=== PATIENT | female | born 1995 | race American Indian/Alaskan Native ===

== ENCOUNTER 2017-09-19 19:37 | Emergency (ER) | payer MEDICAID ==
[2017-09-19] MEDS ORDERED: NACL 0.9% 1000 ML 1,000 ML IV ONE (19:51)
[2017-09-19] MEDS ORDERED: ZOFRAN IV ONE (20:12)
[2017-09-19 20:13] LABS: HCG Qualitative,Urine Negative (Negative)
[2017-09-19 20:15] LABS: Bacteria,Urine 1+ /HPF (Negative); Bilirubin,Urine NEG (Negative); Blood,Urine NEG (Negative); Color,Urine Yellow (Yellow); Mucus,Urine 3+ /HPF; Urobilinogen,Urine < 2.0 mg/dL (<2.0)
--- NOTE | 2017-09-19 20:19 | Emergency Department Report ---
ED N/V/D HPI - General Chief complaint: Nausea/Vomiting/Diarrhea Stated complaint: VOMTTING Time Seen by Provider: 09/19/17 20:11 Source: patient Mode of arrival: Ambulatory Limitations: No Limitations - History of Present Illness Initial comments: Previously healthy 22-year-old female awakened this morning with repeated bouts of nausea and vomiting, as well as several bouts of loose watery diarrheal stools. The only unusual activity was that she had been partying last night for the holidays, having approximately 4 or 5 total alcohol drinks between 2202 or 100 hours this morning, and none after that. She does not drink alcohol to abuse, but also normally does not drink as much as she did last evening. She has no prior history of gastritis, pancreatitis, ulcer disease, or other gastric intestinal problems. She is not aware of having eaten any unusual foods , has had no known ill contacts. -: This morning Time: 08:00 Description of Vomiting: watery Description of Diarrhea: water Associated Abdominal Pain: No Associated Symptoms: denies other symptoms - Related Data Previous Rx's Medication Instructions Recorded Last Taken Type Dicyclomine [Bentyl] 10 mg PO QID PRN #10 capsule 09/19/17 Unknown Rx Ondansetron [Zofran ORAL LIQ] 4 mg PO Q4-6H PRN #10 ml 09/19/17 Unknown Rx Allergies Allergy/AdvReac Type Severity Reaction Status Date / Time No Known Allergies Allergy Unverified 09/19/17 19:51 ED Review of Systems ROS: Stated complaint: VOMTTING Other details as noted in HPI Comment: All other systems reviewed and negative Constitutional: no symptoms reported ENT: denies: ear pain, throat pain Cardiovascular: denies: chest pain, palpitations Endocrine: no symptoms reported Gastrointestinal: abdominal pain (only with significant amounts of retching), nausea, vomiting, diarrhea. denies: hematemesis, melena, hematochezia Genitourinary: denies: urgency, dysuria Musculoskeletal: denies: back pain, joint swelling, arthralgia Skin: denies: rash, lesions Neurological: denies: headache, weakness, paresthesias Psychiatric: denies: anxiety, depression Hematological/Lymphatic: denies: easy bleeding, easy bruising ED Past Medical Hx - Past Medical History Previous Medical History?: No - Social History Smoking Status: Current Every Day Smoker Substance Use Type: Alcohol - Medications Home Medications: Home Medications Medication Instructions Recorded Confirmed Last Taken Type Dicyclomine [Bentyl] 10 mg PO QID PRN #10 capsule 09/19/17 Unknown Rx Ondansetron [Zofran ORAL LIQ] 4 mg PO Q4-6H PRN #10 ml 09/19/17 Unknown Rx ED Physical Exam - General Limitations: No Limitations General appearance: alert, in distress (mild discomfort, nauseated, no active vomiting at time of examination) - Head Head exam: Present: atraumatic, normocephalic - Eye Eye exam: Present: PERRL, EOMI - ENT ENT exam: Present: normal exam, mucous membranes dry - Neck Neck exam: Present: normal inspection, full ROM. Absent: tenderness, meningismus - Respiratory Respiratory exam: Present: normal lung sounds bilaterally. Absent: respiratory distress, chest wall tenderness - Cardiovascular Cardiovascular Exam: Present: regular rate, normal heart sounds - GI/Abdominal GI/Abdominal exam: Present: soft, normal bowel sounds. Absent: distended, tenderness, guarding, rebound, rigid - Rectal Rectal exam: Present: deferred - Extremities Exam Extremities exam: Present: normal inspection - Neurological Exam Neurological exam: Present: alert, oriented X3, CN II-XII intact. Absent: motor sensory deficit - Psychiatric Psychiatric exam: Present: normal affect, normal mood - Skin Skin exam: Present: warm, dry, intact, normal color. Absent: rash ED Course Vital Signs 09/19/17 09/19/17 09/19/17 19:45 19:59 20:00 Temperature 36.8 C Pulse Rate 87 Respiratory 20 Rate Blood Pressure 132/66 127/77 O2 Sat by Pulse 97 94 Oximetry 09/19/17 09/19/17 09/19/17 20:03 20:05 20:07 Temperature Pulse Rate Respiratory Rate Blood Pressure 127/77 127/77 127/77 O2 Sat by Pulse 100 98 100 Oximetry 09/19/17 09/19/17 09/19/17 20:09 20:11 20:13 Temperature Pulse Rate Respiratory Rate Blood Pressure 127/77 127/77 127/77 O2 Sat by Pulse 100 100 100 Oximetry 09/19/17 09/19/17 09/19/17 20:15 20:16 20:19 Temperature Pulse Rate Respiratory Rate Blood Pressure 127/77 105/66 105/66 O2 Sat by Pulse 96 100 96 Oximetry 09/19/17 09/19/17 09/19/17 20:21 20:23 20:25 Temperature Pulse Rate Respiratory Rate Blood Pressure 105/66 105/66 105/66 O2 Sat by Pulse 100 99 100 Oximetry 09/19/17 09/19/17 09/19/17 20:27 20:29 20:30 Temperature Pulse Rate Respiratory Rate Blood Pressure 105/66 105/66 110/62 O2 Sat by Pulse 100 100 Oximetry 09/19/17 20:33 Temperature 36.3 C L Pulse Rate Respiratory 16 Rate Blood Pressure O2 Sat by Pulse 99 Oximetry - Reevaluation(s) Reevaluation #1: 09/19/17 20:51 Patient significantly improved after IV rehydration with normal saline and nausea treated with IV ondansetron. She was thirsty, and was given a fluid challenge, which she tolerated well. ED Medical Decision Making - Lab Data Result diagrams: 09/19/17 20:18 09/19/17 20:18 - Medical Decision Making Patient has episode of repeated bouts of nausea vomiting along with watery diarrhea, with history of having celebrated with significant amount of alcohol previous evening, but I believe that this is likely incidental, the patient has typical findings suggestive of acute gastroenteritis. She is moderately dehydrated, has decreased serum bicarbonate, but glucose is normal, test is negative, lipase is normal, she is not anemic, and only has minimally elevated white count. She was improved with IV rehydration and antiemetics, will be discharged home with same. She is stable for discharge home with symptomatic treatment. She works from home, does not work excuse, and will be recommended to follow up if she has persistent symptoms last longer than one or 2 days more. - Differential Diagnosis gastroenteritis, alcoholic gastritis, pancreatitis Critical Care Time: No Critical care attestation.: If time is entered above; I have spent that time in minutes in the direct care of this critically ill patient, excluding procedure time. ED Disposition Clinical Impression: Dehydration, moderate, Acute gastroenteritis Nausea and vomiting Qualifiers: Vomiting type: unspecified Vomiting Intractability: unspecified Qualified Code( s): R11.2 - Nausea with vomiting, unspecified Disposition: DC-01 TO HOME OR SELFCARE Is pt being admited?: No Does the pt Need Aspirin: No Condition: Stable Instructions: Dehydration (ED), Gastroenteritis (ED), Acute Nausea and Vomiting (ED) Additional Instructions: Diarrhea needs no particular treatment, as long as you can tolerate the frequency of bowel movements, and you can take in enough liquid hydration to make up for any fluid losses through diarrhea as well, otherwise dehydration will recur or get worse. If you wish to treat diarrhea, he may take Imodium, generic name loperamide, and he may take a 2 mg tablet after each loose stool, up to a total of 8 doses in any one 24-hour period. This medication is [id number], and may be obtained from any pharmacy or grocery store. Advance diet gradually, avoid spicy foods or fatty foods while you were ill, and resume regular meals, once or tolerating fluids without vomiting. These symptoms should clear themselves up within one or 2 days on their own. Have recheck my physician in 2 or 3 days if you're still having symptoms by that time. Prescriptions: Dicyclomine [Bentyl] 10 mg PO QID PRN #10 capsule PRN Reason: abdominal cramping Ondansetron [Zofran ORAL LIQ] 4 mg PO Q4-6H PRN #10 ml PRN Reason: Nausea Time of Disposition: 20:53
[2017-09-19 20:33] LABS: Hematocrit 42.8 % (30.3-42.9); Hemoglobin 14.6 gm/dl (10.1-14.3); Mean Corpuscular HGB Conc 34 % (30-34); Mean Corpuscular Hemoglobin 33 pg (28-32); Mean Corpuscular Volume 95 fl (79-97); Platelet Count 257 K/mm3 (140-440); Red Cell Distribution Width 12.6 % (13.2-15.2)
[2017-09-19 20:58] LABS: Alanine Aminotransferase 22 units/L (7-56); Albumin 5.5 g/dL (3.9-5); BUN/Creatinine Ratio 23; Blood Urea Nitrogen 16 mg/dL (7-17); Calcium 10.5 mg/dL (8.4-10.2); Hemolysis Index 9; Lipase 15 units/L (13-60)
[2017-09-19 21:23] VITALS: BP 116/69
[2017-09-19 22:06] LABS: Basophils % (Manual) 0 % (0.0-1.8); Eosinophils % (Manual) 0 % (0.0-4.3); Total Cells Counted 100
[2017-09-19 22:07] LABS: Anisocytosis 1+; Platelet Estimate Consistent w Auto
== END 2017-09-19 21:20 | disposition home or self-care (01) ==
LOC: ED 19:37
DX: K52.9 Noninfective gastroenteritis and colitis, unspecified (principal); E86.0 Dehydration; F17.200 Nicotine dependence, unspecified, uncomplicated
CPT/HCPCS: 36415; 80053; 81001; 81025; 83690; 85007; 85025; 96361; 96374; 99283; J2405; J7030

== ENCOUNTER 2019-02-13 13:33 | Emergency (ER) | payer SELFPAY ==
[2019-02-13] MEDS ORDERED: ONDANSETRON 4 MG ODT TAB PO ONE (13:57)
--- NOTE | 2019-02-13 14:02 | Event Note ---
ED Screening Note Date of service: 02/13/19 Time: 13:55 ED Screening Note: Patient crying and reported n/v and abdominal pain. Chills. LMP 01/17/2019. usualling regular perios. No diahrrea. positive diarrhea.. Ate burger nato prior to sleep. Patient has female partner. No sex with men. No urinary symptom. Unable to drink or eat. Smokes Marijuana. still with appendix.Pain all over abdomen GEN: vss.afeb. crying ABD: TTP in all quadrants. soft. nl bs ABdominal pain This initial assessment/diagnostic orders/clinical plan/treatment(s) is/are subject to change based on patients health status, clinical progression and re- assessment by fellow clinical providers in the ED. Further treatment and workup at subsequent clinical providers discretion. Patient/guardian urged not to elope from the ED as their condition may be serious if not clinically assessed and managed. Initial orders include: Labs. Verónicafran
[2019-02-13 14:47] LABS: Basophils % (Auto) 0.5 % (0.0-1.8); Hematocrit 40.2 % (30.3-42.9); Hemoglobin 13.6 gm/dl (10.1-14.3); Lymphocytes # (Auto) 1.2 K/mm3 (1.2-5.4); Mean Corpuscular HGB Conc 34 % (30-34); Mean Corpuscular Volume 97 fl (79-97); Monocytes # (Auto) 0.4 K/mm3 (0.0-0.8); Monocytes % (Auto) 3.9 % (0.0-7.3); Platelet Count 285 K/mm3 (140-440); Red Blood Count 4.16 M/mm3 (3.65-5.03); Red Cell Distribution Width 13.2 % (13.2-15.2)
[2019-02-13 15:20] LABS: Alanine Aminotransferase 17 units/L (7-56); Albumin 4.8 g/dL (3.9-5); BUN/Creatinine Ratio 23; Blood Urea Nitrogen 14 mg/dL (7-17); Calcium 10.2 mg/dL (8.4-10.2); Hemolysis Index 25
[2019-02-13] MEDS ORDERED: MORPHINE 4 MG/1 ML INJ IV ONE (15:42)
[2019-02-13] MEDS ORDERED: SODIUM CHLORIDE 0.9% 1000 ML 1,000 ML IV ONE (15:42)
[2019-02-13] MEDS ORDERED: METOCLOPRAMIDE 10 MG/2 ML INJ IV ONE (15:42)
[2019-02-13] MEDS ORDERED: PANTOPRAZOLE 40 MG INJ IV ONE (15:43)
--- NOTE | 2019-02-13 15:45 | Emergency Department Report ---
ED Abdominal Pain HPI - General Chief Complaint: Nausea/Vomiting/Diarrhea Stated Complaint: VOMITING Time Seen by Provider: 02/13/19 13:55 Source: patient Mode of arrival: Wheelchair Limitations: No Limitations - History of Present Illness Initial Comments: Patient is 23 years old female with no significant past medical history. Patient presented to the ER complaining of abdominal pain, nausea and vomiting started this morning. Patient stated that she had to glasses of wine last night. Patient denied any fever or chills. Patient also denied any diarrhea. MD Complaint: abdominal pain - Related Data Previous Rx's Medication Instructions Recorded Last Taken Type Dicyclomine [Bentyl] 10 mg PO QID PRN #10 capsule 09/19/17 Unknown Rx Ondansetron [Zofran ORAL LIQ] 4 mg PO Q4-6H PRN #10 ml 09/19/17 Unknown Rx Allergies Allergy/AdvReac Type Severity Reaction Status Date / Time No Known Allergies Allergy Unverified 09/19/17 19:51 ED Review of Systems ROS: Stated complaint: VOMITING Other details as noted in HPI Comment: All other systems reviewed and negative Constitutional: denies: chills, fever Respiratory: denies: cough, shortness of breath Cardiovascular: denies: chest pain Gastrointestinal: abdominal pain, nausea, vomiting. denies: diarrhea, constipation, hematemesis, melena, hematochezia Genitourinary: denies: urgency, dysuria, frequency, hematuria, discharge, abnormal menses Musculoskeletal: denies: back pain ED Past Medical Hx - Past Medical History Previous Medical History?: No - Surgical History Past Surgical History?: No - Social History Smoking Status: Never Smoker - Medications Home Medications: Home Medications Medication Instructions Recorded Confirmed Last Taken Type Dicyclomine [Bentyl] 10 mg PO QID PRN #10 capsule 09/19/17 Unknown Rx Ondansetron [Zofran ORAL LIQ] 4 mg PO Q4-6H PRN #10 ml 09/19/17 Unknown Rx ED Physical Exam - General Limitations: No Limitations General appearance: alert, in no apparent distress - Head Head exam: Present: atraumatic, normocephalic, normal inspection - Eye Eye exam: Present: normal appearance - ENT ENT exam: Present: normal exam, normal orophraynx, mucous membranes moist - Neck Neck exam: Present: normal inspection, full ROM. Absent: tenderness, meningismus, lymphadenopathy, thyromegaly - Respiratory Respiratory exam: Present: normal lung sounds bilaterally - Cardiovascular Cardiovascular Exam: Present: regular rate, normal rhythm, normal heart sounds - GI/Abdominal GI/Abdominal exam: Present: soft, normal bowel sounds. Absent: distended, tenderness, guarding, rebound, rigid, organomegaly, mass, bruit, pulsatile mass, hernia - Extremities Exam Extremities exam: Present: normal inspection, full ROM, normal capillary refill. Absent: tenderness, pedal edema, calf tenderness - Back Exam Back exam: Present: normal inspection, full ROM. Absent: tenderness, CVA tenderness (L), muscle spasm, paraspinal tenderness - Neurological Exam Neurological exam: Present: alert, oriented X3, CN II-XII intact, normal gait, reflexes normal - Psychiatric Psychiatric exam: Present: normal mood - Skin Skin exam: Present: warm, intact, normal color ED Course Vital Signs 02/13/19 02/13/19 02/13/19 13:48 15:04 16:26 Temperature 97.9 F Pulse Rate 88 85 95 H Respiratory 18 16 16 Rate Blood Pressure 124/75 Blood Pressure 110/58 114/63 [Left] O2 Sat by Pulse 100 95 100 Oximetry 02/13/19 18:19 Temperature Pulse Rate 99 H Respiratory 16 Rate Blood Pressure Blood Pressure 107/52 [Left] O2 Sat by Pulse 99 Oximetry ED Medical Decision Making - Lab Data Result diagrams: 02/13/19 14:28 02/13/19 14:28 - Radiology Data Radiology results: report reviewed - Medical Decision Making Patient is 23 years old female with no significant past medical history. Patient presented to the ER complaining of abdominal pain, nausea and vomiting started this morning. Patient stated that she had to glasses of wine last night. Patient denied any fever or chills. Patient also denied any diarrhea. Patient received morphine and Zofran and normal saline. Patient stated that she is feeling much better. No nausea or vomiting observed after Zofran. CT abdomen and pelvis is unremarkable. Ultrasound of the pelvis is negative for acute findings. Patient given a prescription for Zofran and Pepcid and advised to follow-up with her primary care physician in the next 2-3 days and return to the ER if symptoms are not improved. Critical care attestation.: If time is entered above; I have spent that time in minutes in the direct care of this critically ill patient, excluding procedure time. ED Disposition Clinical Impression: Abdominal pain, Vomiting Disposition: DC-01 TO HOME OR SELFCARE Is pt being admited?: No Condition: Stable Instructions: Abdominal Pain (ED), Gastritis (ED) Referrals: PRIMARY CARE,MD [Primary Care Provider] - 3-5 Days
--- NOTE | 2019-02-13 17:31 | Cat Scan Report ---
CT ABDOMEN AND PELVIS WITH CONTRAST HISTORY: abdominal pain. COMPARISON: None. TECHNIQUE: CT images of the abdomen and pelvis were obtained following administration of intravenous contrast. All CT scans at this location are performed using CT dose reduction for ALARA by means of automated exposure control. CONTRAST: 100 ml of intravenous contrast administered. FINDINGS: Lungs/bones: Lung bases are clear. There is no acute osseous abnormality. Abdomen/pelvis: The liver is mildly enlarged with no acute abnormality identified. Gallbladder, sple en, pancreas, adrenals, kidneys, and proximal GI tract appear unremarkable. Urinary bladder is unremarkable. There is a tubular fluid-filled structure in the right adnexal regio n which is not clearly bowel on this exam. No gross pelvic free fluid. There is a small amount of flu id also seen within the uterus. No acute colonic abnormality identified. The appendix is not identifi ed on this exam. IMPRESSION: 1. Tubular fluid-filled structure in the right hemipelvis could be seen with a hydrosalpinx. Consider follow-up endovaginal ultrasound for further evaluation. Signer Name: Chuck Mcknight MD Signed: 02/13/2019 5:26 PM Workstation Name: [id number]
--- NOTE | 2019-02-13 20:17 | Ultrasound Report ---
Pelvic Ultrasound HISTORY: PELVIC PAIN, ABNORMAL CT ABD/PEL. TECHNIQUE: Grayscale and color Doppler imaging performed. COMPARISON: CT abdomen/pelvis from today FINDINGS: Transabdominal and endovaginal imaging was performed. Uterus measures 5.6 x 3.1 x 4.1 cm with endometrial echocomplex measuring 9 mm. There are multiple ov li follicles largest of which measures 1.1 cm on the right. Preserved ovarian blood flow is presen t. No hydrosalpinx identified. There is small volume pelvic free fluid. IMPRESSION: Simple right ovarian cyst and small volume pelvic free fluid. Otherwise unremarkable exam . Findings on the CT examination could have represented fluid-filled nondistended bowel loops. Signer Name: Chuck Mcknight MD Signed: 02/13/2019 8:13 PM Workstation Name: [id number]
[2019-02-13 23:53] VITALS: BP 102/59
== END 2019-02-13 21:53 | disposition home or self-care (01) ==
LOC: ED 13:33
DX: R10.9 Unspecified abdominal pain (principal); R11.2 Nausea with vomiting, unspecified
CPT/HCPCS: 36415; 74177; 76830; 76856; 80053; 83690; 84703; 85025; 96361; 96374; 96375; 99284; C9113; J2270; J2765; J7030; Q9967; Q0162

== ENCOUNTER 2019-11-19 11:16 | Emergency (ER) | payer SELFPAY ==
[2019-11-19 11:29] VITALS: BP 131/95
--- NOTE | 2019-11-19 12:18 | Event Note ---
ED Screening Note Date of service: 11/19/19 Time: 12:14 ED Screening Note: 24 y o fe presents to ED for abd pain with vomitting x 3 days TTP lower pelv abd ETOH use sunday, marijuana use This initial assessment/diagnostic orders/clinical plan/treatment(s) is/are subject to change based on patients health status, clinical progression and re- assessment by fellow clinical providers in the ED. Further treatment and workup at subsequent clinical providers discretion. Patient/guardian urged not to elope from the ED as their condition may be serious if not clinically assessed and managed. Initial orders include: labs, US, ivf, antiemetic
[2019-11-19 13:05] LABS: Basophils % (Auto) 0.3 % (0.0-1.8); Hematocrit 45.4 % (30.3-42.9); Hemoglobin 15.8 gm/dl (10.1-14.3); Lymphocytes # (Auto) 1.8 K/mm3 (1.2-5.4); Lymphocytes % (Auto) 21.1 % (13.4-35.0); Mean Corpuscular HGB Conc 35 % (30-34); Mean Corpuscular Volume 99 fl (79-97); Monocytes # (Auto) 0.9 K/mm3 (0.0-0.8); Platelet Count 281 K/mm3 (140-440); Red Cell Distribution Width 13.4 % (13.2-15.2)
[2019-11-19 13:56] LABS: Alanine Aminotransferase 19 units/L (7-56); Albumin 5.2 g/dL (3.9-5); Blood Urea Nitrogen 14 mg/dL (7-17); Calcium 10.7 mg/dL (8.4-10.2); Hemolysis Index 7
[2019-11-19 13:59] LABS: BUN/Creatinine Ratio 20
--- NOTE | 2019-11-19 15:55 | Ultrasound Report ---
ULTRASOUND ABDOMEN, COMPLETE INDICATION: abd pain. COMPARISON: No relevant prior imaging study available. FINDINGS: Pancreas: No significant abnormality. Abdominal Aorta: No significant abnormality. IVC: No significant abnormality. Liver: The liver measures 11.3 cm in length. No significant abnormality. Normal hepatopedal blood deonte w in the main portal vein. Gallbladder: No significant abnormality. Bile ducts: No significant abnormality. Common bile duct measures 2 mm. Right kidney: 8.6 cm in length. No significant abnormality. Left kidney: 8.6 cm in length. No significant abnormality. Spleen: No significant abnormality. Free fluid: None. Additional Findings: None. IMPRESSION: 1. No sonographic abnormality of the abdomen. Signer Name: Chau Alfaro MD Signed: 11/19/2019 3:50 PM Workstation Name: [id number]
[2019-11-19 16:13] LABS: Bilirubin,Urine NEG (Negative); Blood,Urine NEG (Negative); Color,Urine Amber (Yellow); Mucus,Urine 3+ /HPF
[2019-11-19 16:22] LABS: Amphetamine Screen,Urine PRESUMPTIVE NEGATIVE; Benzodiazepines Screen,Urine PRESUMPTIVE NEGATIVE; Cannabinoid Screen,Urine PRESUMPTIVE POSITIVE; Cocaine Screen,Urine PRESUMPTIVE NEGATIVE; Methadone Screen,Urine PRESUMPTIVE NEGATIVE; Opiate Screen,Urine PRESUMPTIVE NEGATIVE
[2019-11-19] MEDS ORDERED: HYOSCYAMINE SUBL 0.125 MG TAB SL ONE (17:13)
[2019-11-19] MEDS ORDERED: ONDANSETRON 4 MG/2 ML INJ IV STA (17:13)
[2019-11-19] MEDS ORDERED: SODIUM CHLORIDE 0.9% 1000 ML 1,000 ML IV ONE (17:13)
--- NOTE | 2019-11-19 19:19 | Emergency Department Report ---
ED Abdominal Pain HPI - General Chief Complaint: Abdominal Pain Stated Complaint: V/N/ABD PAIN Time Seen by Provider: 11/19/19 17:13 Source: patient Mode of arrival: Ambulatory Limitations: No Limitations - History of Present Illness Initial Comments: 24-year-old -Martiniquais female significant past medical history with exception of EtOH abuse presents emergency department complaining of having day of marijuana and EtOH utilization which was followed by nausea vomiting stomach pain and has continued since the onset. She reports no hemoptysis no hematemesis no hematochezia 1 episode of loose stools. Reports no fever, chills or sweats having difficulty eating due to the symptoms presents emergency department for further evaluation and treatment options. MD Complaint: abdominal pain -: Sudden Location: epigastric Migration to: no migration Quality: aching, dull Improves With: nothing Worsens With: nothing Associated Symptoms: denies other symptoms. denies: vomiting, diarrhea, hematemesis, melena, hematuria, anorexia - Related Data Previous Rx's Medication Instructions Recorded Last Taken Type Dicyclomine [Bentyl] 10 mg PO QID PRN #10 capsule 09/19/17 Unknown Rx Ondansetron [Zofran ORAL LIQ] 4 mg PO Q4-6H PRN #10 ml 09/19/17 Unknown Rx Famotidine [Pepcid] 20 mg PO BID #10 tablet 02/13/19 Unknown Rx Hyoscyamine Subl [Levsin Sl 0.125 0.125 mg SL Q4HR #20 tablet 11/19/19 Unknown Rx TAB] Ondansetron [Zofran ODT TAB] 4 mg PO Q8HR PRN #14 tab.rapdis 11/19/19 Unknown Rx Allergies Allergy/AdvReac Type Severity Reaction Status Date / Time No Known Allergies Allergy Unverified 09/19/17 19:51 ED Review of Systems ROS: Stated complaint: V/N/ABD PAIN Other details as noted in HPI Comment: All other systems reviewed and negative ED Past Medical Hx - Past Medical History Previous Medical History?: Yes Additional medical history: recurrent n/v - Surgical History Past Surgical History?: No - Social History Smoking Status: Never Smoker Substance Use Type: None - Medications Home Medications: Home Medications Medication Instructions Recorded Confirmed Last Taken Type Dicyclomine [Bentyl] 10 mg PO QID PRN #10 capsule 09/19/17 Unknown Rx Ondansetron [Zofran ORAL LIQ] 4 mg PO Q4-6H PRN #10 ml 09/19/17 Unknown Rx Famotidine [Pepcid] 20 mg PO BID #10 tablet 02/13/19 Unknown Rx Hyoscyamine Subl [Levsin Sl 0.125 0.125 mg SL Q4HR #20 tablet 11/19/19 Unknown Rx TAB] Ondansetron [Zofran ODT TAB] 4 mg PO Q8HR PRN #14 tab.rapdis 11/19/19 Unknown Rx ED Physical Exam - General Limitations: No Limitations General appearance: alert, in no apparent distress - Head Head exam: Present: atraumatic, normocephalic - Eye Eye exam: Present: normal appearance. Absent: PERRL, EOMI - ENT ENT exam: Present: normal exam, normal orophraynx, mucous membranes moist, TM's normal bilaterally - Neck Neck exam: Present: normal inspection, tenderness, full ROM - Respiratory Respiratory exam: Present: normal lung sounds bilaterally. Absent: respiratory distress, wheezes, rales, accessory muscle use - Cardiovascular Cardiovascular Exam: Present: regular rate, normal rhythm. Absent: systolic murmur, diastolic murmur, rubs, gallop - GI/Abdominal GI/Abdominal exam: Present: soft, normal bowel sounds. Absent: distended, guarding, hyperactive bowel sounds, organomegaly - Extremities Exam Extremities exam: Present: normal inspection, full ROM, normal capillary refill - Back Exam Back exam: Present: normal inspection - Neurological Exam Neurological exam: Present: alert, oriented X3 - Psychiatric Psychiatric exam: Present: normal affect, normal mood - Skin Skin exam: Present: warm, dry, intact, normal color. Absent: rash ED Course Vital Signs 11/19/19 11:29 Temperature 98.5 F Pulse Rate 100 H Respiratory 18 Rate Blood Pressure 131/95 [Right] O2 Sat by Pulse 100 Oximetry ED Medical Decision Making - Lab Data Result diagrams: 11/19/19 12:36 11/19/19 12:36 Lab Results 11/19/19 11/19/19 11/19/19 Range/Units 12:36 12:36 12:36 WBC 8.7 (4.5-11.0) K/mm3 RBC 4.60 (3.65-5.03) M/mm3 Hgb 15.8 H (10.1-14.3) gm/dl Hct 45.4 H (30.3-42.9) % MCV 99 H (79-97) fl MCH 34 H (28-32) pg MCHC 35 H (30-34) % RDW 13.4 (13.2-15.2) % Plt Count 281 (140-440) K/mm3 Lymph % (Auto) 21.1 (13.4-35.0) % [place] % (Auto) 10.0 H (0.0-7.3) % Eos % (Auto) 0.0 (0.0-4.3) % Baso % (Auto) 0.3 (0.0-1.8) % Lymph # 1.8 (1.2-5.4) K/mm3 [place] # 0.9 H (0.0-0.8) K/mm3 Eos # 0.0 (0.0-0.4) K/mm3 Baso # 0.0 (0.0-0.1) K/mm3 Seg Neutrophils % 68.6 (40.0-70.0) % Seg Neutrophils # 5.9 (1.8-7.7) K/mm3 Sodium 137 (137-145) mmol/L Potassium 3.3 L (3.6-5.0) mmol/L Chloride 92.6 L (98-107) mmol/L Carbon Dioxide 21 L (22-30) mmol/L Anion Gap 27 mmol/L BUN 14 (7-17) mg/dL Creatinine 0.7 (0.6-1.2) mg/dL Estimated GFR > 60 ml/min BUN/Creatinine Ratio 20 % Glucose 91 (65-100) mg/dL Calcium 10.7 H (8.4-10.2) mg/dL Total Bilirubin 0.70 (0.1-1.2) mg/dL AST 28 (5-40) units/L ALT 19 (7-56) units/L Alkaline Phosphatase 53 (35-129) units/L Total Protein 8.5 H (6.3-8.2) g/dL Albumin 5.2 H (3.9-5) g/dL Albumin/Globulin Ratio 1.6 % Lipase 21 (13-60) units/L HCG, Qual Negative (Negative) Urine Color (Yellow) Urine Turbidity (Clear) Urine pH (5.0-7.0) Ur Specific [place] (1.003-1.030) Urine Protein (Negative) mg/dL Urine Glucose (UA) (Negative) mg/dL Urine Ketones (Negative) mg/dL Urine Blood (Negative) Urine Nitrite (Negative) Urine Bilirubin (Negative) Urine Urobilinogen (<2.0) mg/dL Ur Leukocyte Esterase (Negative) Urine WBC (Auto) (0.0-6.0) /HPF Urine RBC (Auto) (0.0-6.0) /HPF U Epithel Cells (Auto) (0-13.0) /HPF Urine Mucus /HPF Urine Opiates Screen Urine Methadone Screen Ur Barbiturates Screen Ur Phencyclidine Scrn Ur Amphetamines Screen U Benzodiazepines Scrn Urine Cocaine Screen U Marijuana (THC) Screen Drugs of Abuse Note 11/19/19 11/19/19 Range/Units 15:47 15:47 WBC (4.5-11.0) K/mm3 RBC (3.65-5.03) M/mm3 Hgb (10.1-14.3) gm/dl Hct (30.3-42.9) % MCV (79-97) fl MCH (28-32) pg MCHC (30-34) % RDW (13.2-15.2) % Plt Count (140-440) K/mm3 Lymph % (Auto) (13.4-35.0) % [place] % (Auto) (0.0-7.3) % Eos % (Auto) (0.0-4.3) % Baso % (Auto) (0.0-1.8) % Lymph # (1.2-5.4) K/mm3 [place] # (0.0-0.8) K/mm3 Eos # (0.0-0.4) K/mm3 Baso # (0.0-0.1) K/mm3 Seg Neutrophils % (40.0-70.0) % Seg Neutrophils # (1.8-7.7) K/mm3 Sodium (137-145) mmol/L Potassium (3.6-5.0) mmol/L Chloride (98-107) mmol/L Carbon Dioxide (22-30) mmol/L Anion Gap mmol/L BUN (7-17) mg/dL Creatinine (0.6-1.2) mg/dL Estimated GFR ml/min BUN/Creatinine Ratio % Glucose (65-100) mg/dL Calcium (8.4-10.2) mg/dL Total Bilirubin (0.1-1.2) mg/dL AST (5-40) units/L ALT (7-56) units/L Alkaline Phosphatase (35-129) units/L Total Protein (6.3-8.2) g/dL Albumin (3.9-5) g/dL Albumin/Globulin Ratio % Lipase (13-60) units/L HCG, Qual (Negative) Urine Color [place] (Yellow) Urine Turbidity Slightly-cloudy (Clear) Urine pH 6.0 (5.0-7.0) Ur Specific [place] 1.028 (1.003-1.030) Urine Protein 100 mg/dl (Negative) mg/dL Urine Glucose (UA) Neg (Negative) mg/dL Urine Ketones 20 (Negative) mg/dL Urine Blood Neg (Negative) Urine Nitrite Neg (Negative) Urine Bilirubin Neg (Negative) Urine Urobilinogen 2.0 (<2.0) mg/dL Ur Leukocyte Esterase Neg (Negative) Urine WBC (Auto) 11.0 H (0.0-6.0) /HPF Urine RBC (Auto) 7.0 (0.0-6.0) /HPF U Epithel Cells (Auto) 10.0 (0-13.0) /HPF Urine Mucus 3+ /HPF Urine Opiates Screen Presumptive negative Urine Methadone Screen Presumptive negative Ur Barbiturates Screen Presumptive negative Ur Phencyclidine Scrn Presumptive negative Ur Amphetamines Screen Presumptive negative U Benzodiazepines Scrn Presumptive negative Urine Cocaine Screen Presumptive negative U Marijuana (THC) Screen Presumptive positive Drugs of Abuse Note Disclamer - Radiology Data Radiology results: report reviewed [facility] [address] [place] [address] Ultrasound Report Signed Patient: MARTHA GOLDMAN MR #: [id number] : 1995 Acct:[id number] Age/Sex: 24 / F ADM Date: 11/19/19 Loc: ED Attending Dr: Ordering Physician: SALLY ABDUL Date of Service: 11/19/19 Procedure(s): US abdomen complete Accession Number(s): [id number] cc: SALLY ABDUL ULTRASOUND ABDOMEN, COMPLETE INDICATION: abd pain. COMPARISON: No relevant prior imaging study available. FINDINGS: Pancreas: No significant abnormality. Abdominal Aorta: No significant abnormality. IVC: No significant abnormality. Liver: The liver measures 11.3 cm in length. No significant abnormality. Normal hepatopedal blood flow in the main portal vein. Gallbladder: No significant abnormality. Bile ducts: No significant abnormality. Common bile duct measures 2 mm. Right kidney: 8.6 cm in length. No significant abnormality. Left kidney: 8.6 cm in length. No significant abnormality. Spleen: No significant abnormality. Free fluid: None. Additional Findings: None. IMPRESSION: 1. No sonographic abnormality of the abdomen. Signer Name: Chau Alfaro MD Signed: 11/19/2019 3:50 PM Workstation Name: [id number] Transcribed By: JOSE Dictated By: Chau Alfaro MD Electronically Authenticated By: Chau Alfaro MD Signed Date/Time: 11/19/191549 DD/ 49 TD/TT: Critical care attestation.: If time is entered above; I have spent that time in minutes in the direct care of this critically ill patient, excluding procedure time. ED Disposition Clinical Impression: Abdominal pain, Vomiting Disposition: DC-01 TO HOME OR SELFCARE Is pt being admited?: No Does the pt Need Aspirin: No Condition: Stable Instructions: Abdominal Pain (ED), Gastroenteritis (ED), Acute Nausea and Vomiting (ED) Prescriptions: Hyoscyamine Subl [Levsin Sl 0.125 TAB] 0.125 mg SL Q4HR #20 tablet Ondansetron [Zofran ODT TAB] 4 mg PO Q8HR PRN #14 tab.rapdis PRN Reason: Nausea And Vomiting Referrals: SYLVIA MARTINEZ MD [Primary Care Provider] - 3-5 Days OLIVIA SNYDER MD [Staff Physician] - 3-5 Days [facility] [Provider Group] - 3-5 Days
== END 2019-11-19 19:40 | disposition home or self-care (01) ==
LOC: ED 11:16
DX: R10.9 Unspecified abdominal pain (principal); R11.10 Vomiting, unspecified; F12.90 Cannabis use, unspecified, uncomplicated; Z79.899 Other long term (current) drug therapy
CPT/HCPCS: 36415; 76700; 80053; 80307; 81001; 83690; 84703; 85025; 87086; 96361; 96374; 99284; J2405; J7030

== ENCOUNTER 2020-07-04 15:31 | Emergency (ER) | payer SELFPAY ==
[2020-07-04 16:07] LABS: Basophils % (Auto) 0.4 % (0.0-1.8); Eosinophils % (Auto) 0.1 % (0.0-4.3); Hematocrit 41.2 % (30.3-42.9); Hemoglobin 13.9 gm/dl (10.1-14.3); Lymphocytes % (Auto) 19.4 % (13.4-35.0); Mean Corpuscular HGB Conc 34 % (30-34); Mean Corpuscular Volume 99 fl (79-97); Monocytes # (Auto) 0.5 K/mm3 (0.0-0.8); Monocytes % (Auto) 4.4 % (0.0-7.3); Platelet Count 262 K/mm3 (140-440); Red Blood Count 4.14 M/mm3 (3.65-5.03); Red Cell Distribution Width 13.8 % (13.2-15.2)
[2020-07-04] MEDS ORDERED: ONDANSETRON 4 MG ODT TAB PO ONE (16:20)
--- NOTE | 2020-07-04 16:20 | Event Note ---
ED Screening Note Date of service: 07/04/20 Time: 16:16 ED Screening Note: pt c/o severe epigastric pain, nausea, vomiting (multiple episodes). Onset this morning. Drank one of glass of wine last night. Drinks every day 1-2 glasses of wine per day. Use to drink liquor daily but stopped 2-3 months ago. + Marijuana abuse. Reports similar symptoms in past but no official diagnosis Denies diarrhea, no fever, no uti symptoms last mc end of may Denies abdominal surgeries This initial assessment/diagnostic orders/clinical plan/treatment(s) is/are subject to change based on patients health status, clinical progression and re- assessment by fellow clinical providers in the ED. Further treatment and workup at subsequent clinical providers discretion. Patient/guardian urged not to elope from the ED as their condition may be serious if not clinically assessed and managed. Initial orders include: Abdominal pain order set.
[2020-07-04 16:23] LABS: Alanine Aminotransferase 14 units/L (7-56); Blood Urea Nitrogen 11 mg/dL (7-17); Calcium 10.1 mg/dL (8.4-10.2); Hemolysis Index 44
[2020-07-04 16:30] LABS: BUN/Creatinine Ratio 18
[2020-07-04] MEDS ORDERED: FAMOTIDINE 20 MG/2 ML INJ IV ONE (19:27)
[2020-07-04] MEDS ORDERED: MORPHINE 4 MG/1 ML INJ IV ONE (19:27)
[2020-07-04] MEDS ORDERED: PROCHLORPERAZINE EDISYLATE 10 MG/2 ML VIAL IV ONE (19:27)
[2020-07-04] MEDS ORDERED: SODIUM CHLORIDE 0.9% 1000 ML 1,000 ML IV ONE (19:28)
--- NOTE | 2020-07-04 19:54 | Emergency Department Report ---
ED N/V/D HPI - General Chief complaint: Abdominal Pain Stated complaint: HOT/COLD CHILLS/NAUSEA VOMITING Source: patient Mode of arrival: Wheelchair Limitations: No Limitations - History of Present Illness Initial comments: Patient is a nulliparous 25-year-old -[place] female with a history of chronic alcohol abuse as well as cannabinoid abuse who presents to the ED with complaint of acute onset persistent intractable nausea and vomiting and diffuse abdominal pain for the last 12 hours. Patient states that she has not been able to keep anything down because of intractable nausea and vomiting. Patient admits to having been drinking alcohol and smoking marijuana in the last 24 hours. Patient states that she has also been feeling generally weak since the symptoms began. Patient states that no one else at home has had similar symptoms. Patient states that she has had similar symptoms in the past after drinking alcohol and smoking marijuana and came to the ED for evaluation a few months ago. Patient denies fever, chills, dizziness, syncope, headache, diar joselito, dysuria, urinary frequency and urgency, change in vision, chest pain or shortness of breath, sore throat, nasal and sinus congestion, vaginal bleeding, vaginal discharge, low back pain or lightheadedness and cough. MD complaint: nausea, vomiting, abdominal pain -: Sudden, hour(s) (12) Description of Vomiting: food contents, watery, bilious Associated Abdominal Pain: Yes (Diffuse) Location: diffuse Radiation: none Severity: severe Pain Scale: 7 Quality: cramping, sharp Consistency: constant Improves with: none Worsens with: eating, vomiting Context: possible food poisoning, other (Polysubstance abuse) Associated Symptoms: denies other symptoms, myalgias, loss of appetite, malaise, nausea/vomiting, weakness. denies: chest pain, cough, diaphoresis, fever/chills, headaches, rash, dysuria, shortness of breath, syncope - Related Data Previous Rx's Medication Instructions Recorded Last Taken Type Dicyclomine [Bentyl] 10 mg PO QID PRN #10 capsule 09/19/17 Unknown Rx Ondansetron [Zofran ORAL LIQ] 4 mg PO Q4-6H PRN #10 ml 09/19/17 Unknown Rx Famotidine [Pepcid] 20 mg PO BID #10 tablet 02/13/19 Unknown Rx Hyoscyamine Subl [Levsin Sl 0.125 0.125 mg SL Q4HR #20 tablet 11/19/19 Unknown Rx TAB] Ondansetron [Zofran ODT TAB] 4 mg PO Q8HR PRN #14 tab.rapdis 11/19/19 Unknown Rx Dicyclomine [Bentyl] 20 mg PO Q6H PRN #30 tablet 07/04/20 Unknown Rx Famotidine [Pepcid] 20 mg PO BID #60 tablet 07/04/20 Unknown Rx Ondansetron [Zofran Odt] 4 mg PO Q6HR PRN #20 tab.rapdis 07/04/20 Unknown Rx Allergies Allergy/AdvReac Type Severity Reaction Status Date / Time No Known Allergies Allergy Verified 07/04/20 15:49 ED Review of Systems ROS: Stated complaint: HOT/COLD CHILLS/NAUSEA VOMITING Other details as noted in HPI Constitutional: malaise, weakness Eyes: denies: eye pain, eye discharge, vision change ENT: denies: ear pain, throat pain Respiratory: denies: cough, shortness of breath, wheezing Cardiovascular: denies: chest pain, palpitations Endocrine: no symptoms reported Gastrointestinal: abdominal pain, nausea, vomiting. denies: diarrhea, constipation, hematemesis, melena, hematochezia Genitourinary: denies: urgency, dysuria, discharge Musculoskeletal: myalgia. denies: back pain, joint swelling, arthralgia Skin: denies: rash, lesions Neurological: denies: headache, weakness, paresthesias Psychiatric: denies: anxiety, depression Hematological/Lymphatic: denies: easy bleeding, easy bruising ED Past Medical Hx - Past Medical History Previous Medical History?: Yes Additional medical history: Cannabinoid associated cyclic vomiting syndrome - Social History Smoking Status: Current Every Day Smoker Substance Use Type: Alcohol - Medications Home Medications: Home Medications Medication Instructions Recorded Confirmed Last Taken Type Dicyclomine [Bentyl] 10 mg PO QID PRN #10 capsule 09/19/17 Unknown Rx Ondansetron [Zofran ORAL LIQ] 4 mg PO Q4-6H PRN #10 ml 09/19/17 Unknown Rx Famotidine [Pepcid] 20 mg PO BID #10 tablet 02/13/19 Unknown Rx Hyoscyamine Subl [Levsin Sl 0.125 0.125 mg SL Q4HR #20 tablet 11/19/19 Unknown Rx TAB] Ondansetron [Zofran ODT TAB] 4 mg PO Q8HR PRN #14 tab.rapdis 11/19/19 Unknown Rx Dicyclomine [Bentyl] 20 mg PO Q6H PRN #30 tablet 07/04/20 Unknown Rx Famotidine [Pepcid] 20 mg PO BID #60 tablet 07/04/20 Unknown Rx Ondansetron [Zofran Odt] 4 mg PO Q6HR PRN #20 tab.rapdis 07/04/20 Unknown Rx ED Physical Exam - General Limitations: No Limitations General appearance: alert, in no apparent distress - Head Head exam: Present: atraumatic, normocephalic, normal inspection - Eye Eye exam: Present: normal appearance, PERRL, EOMI Pupils: Present: normal accommodation - ENT ENT exam: Present: normal exam, normal orophraynx, mucous membranes moist, TM's normal bilaterally, normal external ear exam - Neck Neck exam: Present: normal inspection, full ROM - Respiratory Respiratory exam: Present: normal lung sounds bilaterally. Absent: respiratory distress, wheezes, rales, rhonchi, chest wall tenderness, accessory muscle use, prolonged expiratory - Cardiovascular Cardiovascular Exam: Present: regular rate, normal rhythm, normal heart sounds. Absent: systolic murmur, diastolic murmur, rubs, gallop - GI/Abdominal GI/Abdominal exam: Present: soft, tenderness (Palpable moderately diffuse tenderness, no guarding or rebound), normal bowel sounds, hyperactive bowel sounds (Hyperactive bowel sounds). Absent: guarding, rebound - Extremities Exam Extremities exam: Present: normal inspection, full ROM, normal capillary refill - Back Exam Back exam: Present: normal inspection, full ROM. Absent: tenderness, CVA tenderness (R), CVA tenderness (L), muscle spasm, paraspinal tenderness, vertebral tenderness - Neurological Exam Neurological exam: Present: alert, oriented X3, CN II-XII intact, normal gait, reflexes normal - Psychiatric Psychiatric exam: Present: normal affect, normal mood, anxious - Skin Skin exam: Present: warm, dry, intact, normal color. Absent: rash ED Course Vital Signs 07/04/20 07/04/20 07/04/20 15:46 19:02 20:27 Temperature 97.7 F Pulse Rate 71 Respiratory 24 24 16 Rate Blood Pressure 109/92 Blood Pressure [Left] O2 Sat by Pulse 100 Oximetry 07/04/20 07/04/20 20:30 20:57 Temperature 98.6 F Pulse Rate 97 H Respiratory 16 16 Rate Blood Pressure Blood Pressure 134/80 [Left] O2 Sat by Pulse 100 Oximetry ED Medical Decision Making - Lab Data Result diagrams: 07/04/20 15:52 07/04/20 15:52 - Medical Decision Making This is a nulliparous 25-year-old -[place] female with a history of chronic alcohol abuse as well as cannabinoid abuse who presents to the ED with complaint of acute onset persistent intractable nausea and vomiting and diffuse abdominal pain for the last 12 hours. Patient states that she has not been able to keep anything down because of intractable nausea and vomiting. Patient admits to having been drinking alcohol and smoking marijuana in the last 24 hours. Patient states that she has also been feeling generally weak since the symptoms began. Patient states that no one else at home has had similar symptoms. Patient states that she has had similar symptoms in the past after drinking alcohol and smoking marijuana and came to the ED for evaluation a few months ago. In the ED, patient is alert and oriented x3 and is not in any distress but anxious and appears to be in pain and uncomfortable during the physical exam. The vital signs are stable. Lab test results were reviewed and are all nonactionable except for urine drug screen that was positive for marijuana and opioids. Patient was treated in the ED with antiemetics, antacids and pain medications as well as given Normal saline 1 L IV bolus x1. On reevaluation, patient's nausea and vomiting resolved medications. Patient was able to keep oral fluids in the ED with no difficulty. Patient was therefore discharged home on antiemetics, antacids and antispasmodics. Patient was advised to maintain a clear liquid diet for 12-24 hrs., take medication as adv ised and follow-up with her primary care physician in 5 to 7 days for reevaluation. Patient was advised to return to the ED immediately if symptoms get worse. - Differential Diagnosis Dehydration; ; GERD; gastritis; gastroenteritis; UTI Critical care attestation.: If time is entered above; I have spent that time in minutes in the direct care of this critically ill patient, excluding procedure time. ED Disposition Clinical Impression: Cannabinoid hyperemesis syndrome, Viral gastroenteritis Abdominal pain Qualifiers: Abdominal location: generalized Qualified Code(s): R10.84 - Generalized abdominal pain GERD (gastroesophageal reflux disease) Qualifiers: Esophagitis presence: esophagitis presence not specified Qualified Code(s): K21.9 - Gastro-esophageal reflux disease without esophagitis Disposition: TO HOME OR SELFCARE Is pt being admited?: No Does the pt Need Aspirin: No Condition: Stable Instructions: Viral Gastroenteritis, Adult, [id number], Nausea and Vomiting, Adult, [id number], Abdominal Pain, Adult, [id number], Abdominal Pain (ED), Gastroesophageal Reflux Disease, Adult, [id number] Additional Instructions: All lab test results were reviewed and are all nonactionable except for the positive THC in the urine drug screen consistent with marijuana use. The use of marijuana has been clinically known to cause intractable nausea and vomiting called cyclic vomiting syndrome. The use of marijuana in addition to alcohol makes the symptoms worse. Therefore refrain from marijuana or alcohol abuse, maintain a clear liquid diet for the next 12 to 24 hours, take medication as needed for nausea and vomiting and drink plenty of fluids. Return to the ED i mmediately if symptoms get worse, otherwise follow-up with your primary care physician in 5 to 7 days for reevaluation. Prescriptions: Dicyclomine [Bentyl] 20 mg PO Q6H PRN #30 tablet PRN Reason: abdominal pain Famotidine [Pepcid] 20 mg PO BID #60 tablet Ondansetron [Zofran Odt] 4 mg PO Q6HR PRN #20 tab.rapdis PRN Reason: Nausea Referrals: [facility] [Outside] - 3-5 Days [facility] [Provider Group] - 3-5 Days Time of Disposition: 23:19 Print Language: TRINIDADIAN
[2020-07-04 22:06] LABS: Bilirubin,Urine NEG (Negative); Blood,Urine NEG (Negative); Color,Urine Yellow (Yellow); Mucus,Urine 2+ /HPF; Urobilinogen,Urine < 2.0 mg/dL (<2.0)
[2020-07-04 22:12] LABS: Amphetamine Screen,Urine Negative; Benzodiazepines Screen,Urine Negative; Cocaine Screen,Urine Negative; Methadone Screen,Urine Negative
[2020-07-04 22:26] LABS: Cannabinoid Screen,Urine Positive; Opiate Screen,Urine Positive
[2020-07-04 23:26] VITALS: BP 123/80
== END 2020-07-04 23:40 | disposition home or self-care (01) ==
LOC: ED 15:31
DX: K21.9 Gastro-esophageal reflux disease without esophagitis (principal); A08.4 Viral intestinal infection, unspecified; R11.2 Nausea with vomiting, unspecified; R10.9 Unspecified abdominal pain; F17.200 Nicotine dependence, unspecified, uncomplicated; Z79.899 Other long term (current) drug therapy
CPT/HCPCS: 36415; 80053; 80307; 81001; 83690; 83735; 85025; 96361; 96374; 96375; 99283; J0780; J2270; J7030; Q0162